=== PATIENT | female | born 1995 ===

== ENCOUNTER 2018-06-03 10:21 | Emergency (ER) | payer OTHER ==
[2018-06-03 10:53] VITALS: BP 105/68; PULSE 73; RESP 18; O2SAT 98
--- NOTE | 2018-06-03 11:07 | ED PDOC ---
HPI: Abdomen Time Seen by Provider: 06/03/18 10:56 Chief Complaint (Nursing): Abdominal Pain History Per: Patient Onset/Duration Of Symptoms: Intermittent Episodes Current Symptoms Are (Timing): Intermittent Episodes Severity: Mild Location Of Pain/Discomfort: RLQ Quality Of Discomfort: Unable To Describe Associated Symptoms: denies: Fever, Nausea, Vomiting, Diarrhea, Urinary Symptoms Exacerbating Factors: None Alleviating Factors: None Additional Complaint(s): Intermittent RLQ abd pain over past few months. Worse last night. Denies NVD. Denies urinary sxs. LMP May 11 Past Medical History Vital Signs: Last Vital Signs Temp 98.8 F 06/03/18 10:51 Pulse 73 06/03/18 10:51 Resp 18 06/03/18 10:51 BP 105/68 06/03/18 10:51 Pulse Ox 98 06/03/18 10:51 - Medical History Other PMH: Ovarian cyst - Family History Family History: States: Unknown Family Hx - Home Medications Home Medications: Ambulatory Orders Medication Instructions Recorded Naproxen [Naprosyn] 500 mg PO Q12H #20 tab 06/03/18 - Allergies Allergies/Adverse Reactions: Allergies Allergy/AdvReac Type Severity Reaction Status Date / Time No Known Allergies Allergy Verified 06/03/18 10:51 Review of Systems Constitutional: Negative for: Fever Gastrointestinal: Positive for: Abdominal Pain. Negative for: Nausea, Vomiting, Diarrhea Genitourinary Female: Negative for: Dysuria, Frequency Musculoskeletal: Negative for: Back Pain Physical Exam - Physical Exam Appears: Positive for: Non-toxic, No Acute Distress Skin: Positive for: Normal Color, Warm, DRY Gastrointestinal/Abdominal: Positive for: Bowel Sounds, Soft, Tenderness (Mild RLQ tenderness). Negative for: Guarding, Rebound Back: Negative for: L CVA Tenderness, R CVA Tenderness Extremity: Positive for: Normal ROM Neurologic/Psych: Positive for: Alert, Oriented - ECG O2 Sat by Pulse Oximetry: 98 Medical Decision Making Medical Decision Making: Discussed with Dr. Bobby, can be followed outpt with repeat US 2-3 months Disposition - Clinical Impression Clinical Impression: Ovarian cyst - Patient ED Disposition Is Patient to be Admitted: No Counseled Patient/Family Regarding: Studies Performed, Diagnosis, Need For Followup, Rx Given - Disposition [facility] Disposition: Routine/Home Disposition Time: 13:38 Condition: FAIR Prescriptions: Naproxen [Naprosyn] 500 mg PO Q12H #20 tab Instructions: Ovarian Cysts Forms: [facility] (German) Print Language: FAROESE
--- NOTE | 2018-06-03 12:55 | US ---
Date of service: 06/03/2018 PROCEDURE: HISTORY: Right sided pain, h/o cysts COMPARISON: None TECHNIQUE: FINDINGS: The uterus measures 7.4 x 3.4 x 3.9 centimeters. The endometrium measures 7 millimeters. The right ovary measures 8.1 x 5.8 x 5.6 centimeters contains a complex septated ovarian cyst measuring 7.5 x 4.3 centimeters. The left ovary measures 3.4 x 1.3 x 2.3 centimeters contains a 1.9 centimeter follicular cyst. There is no free fluid the pelvis. IMPRESSION: Large complex right ovarian cyst measuring up to 7.5 centimeters. Recommend follow-up in 2-3 menstrual cycles.
[2018-06-03 13:53] VITALS: TEMP 97.6
== END 2018-06-03 13:45 | disposition home or self-care (01) ==
LOC: H.ER 10:21
DX: N83.201 Unspecified ovarian cyst, right side (principal)

== ENCOUNTER 2018-10-03 08:48 | Inpatient (IN) | payer SELFPAY ==
[2018-10-03] MEDS ORDERED: Morphine 4 MG/ML VIAL IVP ONE (09:50)
[2018-10-03 10:26] LABS: BASO % 0.1 % (0.0-2.0); EOS % 0.1 % (0.0-4.0); HEMOGLOBIN 13.1 g/dL (12.0-16.0); LYMPH # 2.4 K/uL (1.0-4.3); LYMPH % 16.6 % (20.0-40.0); MEAN CELL VOLUME 95.3 fl (81.0-99.0); MEAN CORPUSCULAR HEMOGLOBIN 31.9 pg (27.0-31.0); MEAN CORPUSCULAR HGB CONC 33.5 g/dL (33.0-37.0); MEAN PLATELET VOLUME 8.3 fl (7.2-11.7); MONO # 0.7 K/uL (0.0-0.8); MONO % 4.7 % (0.0-10.0); NEUT # 11.3 K/uL (1.8-7.0); NEUT % 78.5 % (50.0-75.0); RBC 4.12 Mil/uL (3.80-5.20); RED CELL DISTRIBUTION WIDTH 13.4 % (11.5-14.5); WHITE BLOOD COUNT 14.4 K/uL (4.8-10.8)
[2018-10-03 10:28] LABS: SQUAMOUS EPITHIAL 4 /hpf (0-5); URINE AMORPHOUS SEDIMENT MODERATE /ul (<OCC); URINE BACTERIA OCC (<OCC); URINE BILIRUBIN NEGATIVE (NEGATIVE); URINE BLOOD SMALL (NEGATIVE); URINE CLARITY CLOUDY (Clear); URINE COLOR YELLOW (YELLOW); URINE GLUCOSE (UA) NEG (NEGATIVE); URINE LEUKOCYTE ESTERASE NEG Leu/uL (Negative); URINE PROTEIN NEGATIVE (NEGATIVE); URINE UROBILINOGEN 0.2-1.0 mg/dL (0.2-1.0)
[2018-10-03 10:30] LABS: VENOUS BLOOD GAS BASE EXCESS -0.2 mmol/L (0.0-2.0); VENOUS BLOOD GAS PCO2 44 mmHg (40-60); VENOUS BLOOD GAS PO2 31 mm/Hg (30-55); VENOUS BLOOD PH 7.37 (7.32-7.43)
[2018-10-03 10:42] VITALS: BMI 19.3
[2018-10-03 10:51] LABS: ALB/GLOB RATIO 1.2 (1.0-2.1); ALBUMIN 4.6 g/dL (3.5-5.0); ALT/SGPT 24 U/L (9-52); AST/SGOT 35 U/L (14-36); BLOOD UREA NITROGEN 12 mg/dl (7-17); CALCIUM 9.5 mg/dL (8.4-10.2); GFR NON-AFRICAN AMERICAN > 60
[2018-10-03] MEDS ORDERED: Sodium Chloride 0.9% 50 ML IV ONE (11:08)
[2018-10-03] MEDS ORDERED: Iohexol 300 100 ML IJ ONE (11:08)
--- NOTE | 2018-10-03 11:09 | ED PDOC ---
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 Patient states that she also began vomiting this morning and pain became more serve. She admits to a history of ovarian cyst requiring surgical intervention. Patient offers no other medical complaints at this time. PMD: none provided Lift Team Technician: Dr. Rodriguez Past Medical History Reviewed: Historical Data, Nursing Documentation, Vital Signs Vital Signs: Last Vital Signs Temp 97 F L 10/03/18 09:07 Pulse 67 10/03/18 09:07 Resp 18 10/03/18 09:07 BP 113/71 10/03/18 09:07 Pulse Ox 98 10/03/18 09:32 - Medical History PMH: No Chronic Diseases - Surgical History Surgical History: No Surg Hx - Family History Family History: States: Unknown Family Hx - Social History Current smoker - smoking cessation education provided: No Alcohol: None Drugs: Denies - Immunization History Hx Tetanus Toxoid Vaccination: No Hx Influenza Vaccination: No Hx Pneumococcal Vaccination: No - Home Medications Home Medications: Ambulatory Orders Medication Instructions Recorded Multivitamin [Multi-Vitamin Daily] 1 tab PO DAILY 10/03/18 - Allergies Allergies/Adverse Reactions: Allergies Allergy/AdvReac Type Severity Reaction Status Date / Time No Known Allergies Allergy Verified 06/03/18 10:51 Review of Systems ROS Statement: Except As Marked, All Systems Reviewed And Found Negative Gastrointestinal: Positive for: Vomiting, Abdominal Pain Physical Exam - Reviewed Nursing Documentation Reviewed: Yes Vital Signs Reviewed: Yes - Physical Exam Appears: Positive for: Non-toxic, In Acute Distress (mild painful ) Head Exam: Positive for: ATRAUMATIC, NORMAL INSPECTION, NORMOCEPHALIC Skin: Positive for: Normal Color, Warm, DRY Eye Exam: Positive for: Normal appearance ENT: Positive for: Normal ENT Inspection Neck: Positive for: Normal, Painless ROM Cardiovascular/Chest: Positive for: Regular Rate, Rhythm. Negative for: Murmur Respiratory: Positive for: Normal Breath Sounds. Negative for: Respiratory Distress Gastrointestinal/Abdominal: Positive for: Soft, Tenderness (right lower quadrant tenderness ) Back: Positive for: Normal Inspection. Negative for: L CVA Tenderness, R CVA Tenderness, Vertebral Tenderness Extremity: Positive for: Normal ROM. Negative for: Deformity, Swelling Neurologic/Psych: Positive for: Alert, Oriented. Negative for: Motor/Sensory Deficits - Laboratory Results Result Diagrams: 10/05/18 06:05 10/05/18 06:05 Lab Results: pO2 31 mm/Hg (30-55) 10/03/18 10:13 VBG pH 7.37 (7.32-7.43) 10/03/18 10:13 VBG pCO2 44 mmHg (40-60) 10/03/18 10:13 VBG HCO3 23.7 mmol/L 10/03/18 10:13 VBG Total CO2 26.8 mmol/L (22-28) 10/03/18 10:13 VBG O2 Sat (Calc) 58.9 % (40-65) 10/03/18 10:13 VBG Base Excess -0.2 mmol/L (0.0-2.0) L 10/03/18 10:13 Sodium 195.0 mmol/L (132-148) H* 10/03/18 10:13 Chloride 126.0 mmol/L (98-107) H 10/03/18 10:13 Glucose 106 mg/dL (65-105) H 10/03/18 10:13 Lactate 2.3 mmol/L (0.7-2.1) H 10/03/18 10:13 FiO2 21.0 % 10/03/18 10:13 Crit Value Called To Bertha vaz md 10/03/18 10:13 Crit Value Called By Anthony gresham [facility] 10/03/18 10:13 Crit Value Read Back Y 10/03/18 10:13 Blood Gas Notified Time 1035 10/03/18 10:13 Total Bilirubin 0.7 mg/dl (0.2-1.3) 10/03/18 09:45 AST 35 U/L (14-36) 10/03/18 09:45 ALT 24 U/L (9-52) 10/03/18 09:45 Alkaline Phosphatase 88 U/L (38-126) 10/03/18 09:45 Total Protein 8.5 G/DL (6.3-8.2) H 10/03/18 09:45 Albumin 4.6 g/dL (3.5-5.0) 10/03/18 09:45 Globulin 3.9 gm/dL (2.2-3.9) 10/03/18 09:45 Albumin/Globulin Ratio 1.2 (1.0-2.1) 10/03/18 09:45 Urine Color Yellow (YELLOW) 10/03/18 09:45 Urine Clarity Cloudy (Clear) 10/03/18 09:45 Urine pH 6.0 (5.0-8.0) 10/03/18 09:45 Ur Specific Oil Trough 1.018 (1.003-1.030) 10/03/18 09:45 Urine Protein Negative mg/dL (NEGATIVE) 10/03/18 09:45 Urine Glucose (UA) Neg mg/dL (NEGATIVE) 10/03/18 09:45 Urine Ketones Negative mg/dL (NEGATIVE) 10/03/18 09:45 Urine Blood Small (NEGATIVE) 10/03/18 09:45 Urine Nitrate Negative (NEGATIVE) 10/03/18 09:45 Urine Bilirubin Negative (NEGATIVE) 10/03/18 09:45 Urine Urobilinogen 0.2-1.0 mg/dL (0.2-1.0) 10/03/18 09:45 Ur Leukocyte Esterase Neg Arie/uL (Negative) 10/03/18 09:45 Urine RBC (Auto) 5 /hpf (0-3) H 10/03/18 09:45 Urine Microscopic WBC < 1 /hpf (0-5) 10/03/18 09:45 Ur Squamous Epith Cells 4 /hpf (0-5) 10/03/18 09:45 Amorphous Sediment Moderate /ul (<OCC) H 10/03/18 09:45 Urine Bacteria Occ (<OCC) H 10/03/18 09:45 - ECG O2 Sat by Pulse Oximetry: 98 (RA) Pulse Ox Interpretation: Normal Medical Decision Making Medical Decision Making: Time: 10:00 A/P: workup for ovarian cyst vs other cause of right lower quadrant pain --Morphine for pain control --Zofran, IV fluids, labs, CT abd/pelvis --Reassess patient CT Abd/Pelvis: FINDINGS: LOWER THORAX: Unremarkable. LIVER: Unremarkable. No gross lesion or ductal dilatation. GALLBLADDER AND BILE DUCTS: Gallbladder is only mildly distended with trace pericholecystic fluid noted but no radiodense cholelithiasis or prominent mural thickening related. Clinically correlate for potential cholecystitis. PANCREAS: Unremarkable. No gross lesion or ductal dilatation. SPLEEN: Unremarkable. ADRENALS: Unremarkable. No mass. KIDNEYS AND URETERS: Unremarkable. No hydronephrosis. No solid mass. VASCULATURE: Unremarkable. No aortic aneurysm. No aortic atherosclerotic calcification or mural plaque present. BOWEL: Unremarkable. No obstruction. No gross mural thickening. APPENDIX: Normal appendix. PERITONEUM: Unremarkable. No free fluid. No free air. LYMPH NODES: Unremarkable. No enlarged lymph nodes. BLADDER: Unremarkable. REPRODUCTIVE: At the right adnexal compartment but also extending into the midline lower abdomen and left lower quadrant is a large complex cystic mass measuring 11.9 x 7.0 x 10.4 cm (transverse by anteroposterior by superoinferior dimensions) with multiple septations and nodules related but no calcifications or definite fat. Trace surrounding fluid is associated laterally. The appendix is adjacent to this structure but probably separate from it. This likely corresponds to cystic changes seen at the right adnexal compartment without defined right ovary in prior transvaginal pelvic ultrasound 09/25/2018. The cystic components appeared interconnect and the overall diagnosis therefore felt to reflect hydrosalpinx. Pyosalpinx is not excluded. Clinically correlate further. Gynecological consultation advised. Small cysts are identified at the left ovary measuring up to 1.5 cm greatest dimension. There may be some amount of fluid in the endometrial cavity of the uterus otherwise unremarkable. No pelvic sidewall or retroperitoneal lymphadenopathy appreciated local mesenteric lymph nodes are shotty and infrequent. BONES: No acute fracture. OTHER FINDINGS: None. IMPRESSION: An 11.9 cm complex cystic/tubular mass is seen at the right adnexal compartment extending into the midline lower abdomen and left lower quadrant as well with trace related fluid felt to reflect hydrosalpinx and potential pyosalpinx. Gynecological consultation advised. Differential diagnosis though unlikely would be cystic ovarian neoplasm. Trace fluid is seen related to the gallbladder fossa though the gallbladder intrinsically appears unremarkable otherwise. Trace fluid is seen in the right pericolic gutter with both of these collection potentially related to the right adnexal finding. Further clinical correlation for potential cholecystitis nevertheless advised. 13:[address] hPelps. Will start antibiotics and will get an ultrasound to rule out torsion. ----- Scribe Attestation: Documented by Belen Curtis, acting as a scribe for Bertha Vaz MD. Provider Scribe Attestation: All medical record entries made by the Scribe were at my direction and personall y dictated by me. I have reviewed the chart and agree that the record accurately reflects my personal performance of the history, physical exam, medical decision making, and the department course for this patient. I have also personally directed, reviewed, and agree with the discharge instructions and disposition. Disposition - Clinical Impression Clinical Impression: Abdominal pain in female - Disposition Disposition Time: 15:00 Condition: GOOD
[2018-10-03] MEDS ORDERED: Sodium Chloride 0.9% 1,000 ML IV STA (11:24)
--- NOTE | 2018-10-03 13:13 | CT ---
Date of service: 10/03/2018 PROCEDURE: CT Abdomen and Pelvis with contrast HISTORY: RLQ pain COMPARISON: Transvaginal pelvic ultrasound 09/25/2018. TECHNIQUE: Following the intravenous administration of iodinated contrast material, a CT examination of the abdomen and pelvis was performed from the domes of the diaphragms to the symphysis pubis with reformatted datasets provided in axial, sagittal and coronal planes. Oral contrast was not administered as per referring physician request. Contrast dose: Omnipaque 300, 95 cc Radiation dose: Total exam DLP = 278.06 mGy-cm. This CT exam was performed using one or more of the following dose reduction techniques: Automated exposure control, adjustment of the mA and/or kV according to patient size, and/or use of iterative reconstruction technique. FINDINGS: LOWER THORAX: Unremarkable. LIVER: Unremarkable. No gross lesion or ductal dilatation. GALLBLADDER AND BILE DUCTS: Gallbladder is only mildly distended with trace pericholecystic fluid noted but no radiodense cholelithiasis or prominent mural thickening related. Clinically correlate for potential cholecystitis. PANCREAS: Unremarkable. No gross lesion or ductal dilatation. SPLEEN: Unremarkable. ADRENALS: Unremarkable. No mass. KIDNEYS AND URETERS: Unremarkable. No hydronephrosis. No solid mass. VASCULATURE: Unremarkable. No aortic aneurysm. No aortic atherosclerotic calcification or mural plaque present. BOWEL: Unremarkable. No obstruction. No gross mural thickening. APPENDIX: Normal appendix. PERITONEUM: Unremarkable. No free fluid. No free air. LYMPH NODES: Unremarkable. No enlarged lymph nodes. BLADDER: Unremarkable. REPRODUCTIVE: At the right adnexal compartment but also extending into the midline lower abdomen and left lower quadrant is a large complex cystic mass measuring 11.9 x 7.0 x 10.4 cm (transverse by anteroposterior by superoinferior dimensions) with multiple septations and nodules related but no calcifications or definite fat. Trace surrounding fluid is associated laterally. The appendix is adjacent to this structure but probably separate from it. This likely corresponds to cystic changes seen at the right adnexal compartment without defined right ovary in prior transvaginal pelvic ultrasound 09/25/2018. The cystic components appeared interconnect and the overall diagnosis therefore felt to reflect hydrosalpinx. Pyosalpinx is not excluded. Clinically correlate further. Gynecological consultation advised. Small cysts are identified at the left ovary measuring up to 1.5 cm greatest dimension. There may be some amount of fluid in the endometrial cavity of the uterus otherwise unremarkable. No pelvic sidewall or retroperitoneal lymphadenopathy appreciated local mesenteric lymph nodes are shotty and infrequent. BONES: No acute fracture. OTHER FINDINGS: None. IMPRESSION: An 11.9 cm complex cystic/tubular mass is seen at the right adnexal compartment extending into the midline lower abdomen and left lower quadrant as well with trace related fluid felt to reflect hydrosalpinx and potential pyosalpinx. Gynecological consultation advised. Differential diagnosis though unlikely would be cystic ovarian neoplasm. Trace fluid is seen related to the gallbladder fossa though the gallbladder intrinsically appears unremarkable otherwise. Trace fluid is seen in the right pericolic gutter with both of these collection potentially related to the right adnexal finding. Further clinical correlation for potential cholecystitis nevertheless advised.
[2018-10-03] MEDS ORDERED: Clindamycin 600mg/50ml D5W 600 MG/50 ML VIAL IVPB STA (13:20)
[2018-10-03] MEDS ORDERED: Gentamicin 250 MG in Sodium Chloride 0.9% 250 ML IVPB ONE (13:21)
--- NOTE | 2018-10-03 15:50 | US ---
Date of service: 10/03/2018 HISTORY: rule out right torsion COMPARISON: CT same-day noted additional prior transvaginal ultrasound studies from 09/25/2018 and 06/03/2018 also noted. TECHNIQUE: Ultrasound scanning with Doppler was performed. FINDINGS: UTERUS: Measures 7.2 x 3.4 x 4.8 cm. Normal in size and anteverted appearance. No fibroid or other intrauterine mass lesion seen. ENDOMETRIUM: Measures 8 mm in diameter. Unremarkable. CERVIX: Few clustered nabothian cysts are noted RIGHT OVARY: No normal appearing is seen. Instead a complex cystic mass likely envelopment the right ovary along with the blending right hydrosalpinx with debris within the right hydrosalpinx is suspect. There is free fluid around this complex fluid collection but the amount of fluid is not particularly prominent. A few prominent vessels around this complex right adnexal cystic "mass"/collection is also noted. There is Doppler flow to the right adnexa LEFT OVARY: Measures 4.1 x 2.5 x 3.9 cm. No solid mass. Normal flow. A dominant left ovarian follicular cyst seen measuring 2.0 x 1.6 x 1.9 cm. FREE FLUID: There is some free fluid in the cul-de-sac. OTHER FINDINGS: None. IMPRESSION: Persistent complex probably cystic or right adnexal mass-likely in part developing the right ovary a large part of this is believed to represent a right hydrosalpinx with some debris within the right hydrosalpinx. There is some flow to the right adnexa and no prior torsion is believed present. However prior intermittent bouts of torsion are possible particularly given the clinical history presented to me. The possibility of a large right hydrosalpinx with debris perhaps even pyo hydrosalpinx along with a occult right ovarian cyst also needs to be considered. It is not clearly separate from what is believed to be largely a right hydrosalpinx and/or right pial hydrosalpinx. CT does show some fluid around the gallbladder. And some minimal fluid around the paracolic gutter. On this ultrasound a small non of free fluid in the cul-de-sac is noted.
--- NOTE | 2018-10-03 15:55 | CP.PCM.HP ---
<Tete Sharif - Last Filed: 10/03/18 17:02> History of Present Illness - History of Present Illness History of Present Illness: Voyce: [id number] Pt is a 22 yo F with pmhx of ovarian cysts presented to ED due to progressive RLQ pain, reports the onset of pain was 4 months ago was intermit tent then yesterday pain became persistent and more severe. Associated nausea, vomiting x2 and constipation. Denies fevers or vaginal bleeding. Voiding well, last BM yest, last ate yest AM. Pt was seen in the ED on 06/17 which showed 7.5cm R adnexal cyst was following up outpt. Museum Guide: Dr. Andrade-last saw 08/21/18 Hub Inventory Specialist: LMP 09/21/18, irregular Q40-45 days, no control, Denies hx of STD's, last pap 1 yr ago reports normal PMHx: Ovarian cysts since age 15 Meds: None Allergies: NKDA Surg Hx: Ovarian cystectomy laparoscopic (9cm) 2011, Laparotomy (4cm) 2013 done in [place] FHx: Denies, No uterine, ovarian, or colon ca in the family Social Hx: Denies EtOh, tobacco, or drug use ED course: CT Ab/pelv-R adnexal complex cystic mass measuring 11.9 x 7.0 x 10.4 cm consider hydrosalpinx and potential pyosalpinx. TVU/S-R cystic complex adnexal mass, no ovarian torsion, fluid in the cul de sac. Pain control morphine, Zofran nausea, UPT- negative, CBC, CMP, GC/CHL, U/A, Shock panel, blood cx, urine cx. Started Gentamicin 250mg and Clindamycin 600mg. Present on Admission - Present on Admission Any Indicators Present on Admission: No History of DVT/PE: No History of Uncontrolled Diabetes: No Urinary Catheter: No Decubitus Ulcer Present: No Review of Systems - Gastrointestinal Gastrointestinal: Abdominal Pain (Right lower), Nausea, Vomiting (x2) - Reproductive: Female Reproductive:Female: Cycle >35 Days Past Patient History - Past Social History Smoking Status: Never Smoked Alcohol: None Drugs: Denies - GASTROINTESTINAL Hx Constipation: Yes Hx Nausea: Yes - PSYCHIATRIC Hx Substance Use: No Meds Allergies/Adverse Reactions: Allergies Allergy/AdvReac Type Severity Reaction Status Date / Time No Known Allergies Allergy Verified 06/03/18 10:51 Physical Exam - Constitutional Appears: Non-toxic, No Acute Distress - Head Exam Head Exam: ATRAUMATIC, NORMAL INSPECTION, NORMOCEPHALIC - Eye Exam Eye Exam: EOMI, Normal appearance - ENT Exam ENT Exam: Mucous Membranes Moist - Respiratory Exam Respiratory Exam: Clear to Auscultation Bilateral. absent: Rales, Rhonchi, Wheezes - Cardiovascular Exam Cardiovascular Exam: RRR, +S1, +S2 - GI/Abdominal Exam GI & Abdominal Exam: Guarding, Hypoactive Bowel Sounds, Soft, Tenderness (RLQ and supra pubic tenderness, mild LLQ tenderness). absent: Distended, Rigid Additional comments: Transverse Laparotomy scar supra pubic region, Laparoscopy scars - Extremities Exam Extremities exam: Positive for: normal inspection - Skin Additional comments: Facial Acne Results - Vital Signs Recent Vital Signs: Last Vital Signs Temp 97 F L 10/03/18 09:07 Pulse 78 10/03/18 12:55 Resp 18 10/03/18 12:55 BP 115/69 10/03/18 12:55 Pulse Ox 98 10/03/18 13:44 - Labs Result Diagrams: 10/03/18 09:45 10/03/18 09:45 Labs: Laboratory Results - last 24 hr 10/03/18 10/03/18 10/03/18 09:45 09:45 09:45 WBC 14.4 H RBC 4.12 Hgb 13.1 Hct 39.2 MCV 95.3 MCH 31.9 H MCHC 33.5 RDW 13.4 Plt Count 274 MPV 8.3 Neut % (Auto) 78.5 H Lymph % (Auto) 16.6 L [place] % (Auto) 4.7 Eos % (Auto) 0.1 Baso % (Auto) 0.1 Neut # (Auto) 11.3 H Lymph # (Auto) 2.4 [place] # (Auto) 0.7 Eos # (Auto) 0.0 Baso # (Auto) 0.0 pO2 VBG pH VBG pCO2 VBG HCO3 VBG Total CO2 VBG O2 Sat (Calc) VBG Base Excess Glucose Lactate FiO2 Crit Value Called To Crit Value Called By Crit Value Read Back Blood Gas Notified Time Sodium 142 Potassium 3.5 L Chloride 101 Carbon Dioxide 25 Anion Gap 20 BUN 12 Creatinine 0.5 L Est GFR ( Amer) > 60 Est GFR (Non-Af Amer) > 60 Random Glucose 119 H Calcium 9.5 Total Bilirubin 0.7 AST 35 ALT 24 Alkaline Phosphatase 88 Total Protein 8.5 H Albumin 4.6 Globulin 3.9 Albumin/Globulin Ratio 1.2 Urine Color Yellow Urine Clarity Cloudy Urine pH 6.0 Ur Specific [place] 1.018 Urine Protein Negative Urine Glucose (UA) Neg Urine Ketones Negative Urine Blood Small Urine Nitrate Negative Urine Bilirubin Negative Urine Urobilinogen 0.2-1.0 Ur Leukocyte Esterase Neg Urine RBC (Auto) 5 H Urine Microscopic WBC < 1 Ur Squamous Epith Cells 4 Amorphous Sediment Moderate H Urine Bacteria Occ H Blood Type Blood Type Confirm Antibody Screen BBK History Checked 10/03/18 10/03/18 10/03/18 09:45 10:13 11:04 WBC RBC Hgb Hct MCV MCH MCHC RDW Plt Count MPV Neut % (Auto) Lymph % (Auto) [place] % (Auto) Eos % (Auto) Baso % (Auto) Neut # (Auto) Lymph # (Auto) [place] # (Auto) Eos # (Auto) Baso # (Auto) pO2 31 VBG pH 7.37 VBG pCO2 44 VBG HCO3 23.7 VBG Total CO2 26.8 VBG O2 Sat (Calc) 58.9 VBG Base Excess -0.2 L Glucose 106 H Lactate 2.3 H FiO2 21.0 Crit Value Called To Bertha mayfield md Crit Value Called By Anthony gresham frame aligner Crit Value Read Back Y Blood Gas Notified Time 1035 Sodium 195.0 H* Potassium Chloride 126.0 H Carbon Dioxide Anion Gap BUN Creatinine Est GFR ( Amer) Est GFR (Non-Af Amer) Random Glucose Calcium Total Bilirubin AST ALT Alkaline Phosphatase Total Protein Albumin Globulin Albumin/Globulin Ratio Urine Color Urine Clarity Urine pH Ur Specific [place] Urine Protein Urine Glucose (UA) Urine Ketones Urine Blood Urine Nitrate Urine Bilirubin Urine Urobilinogen Ur Leukocyte Esterase Urine RBC (Auto) Urine Microscopic WBC Ur Squamous Epith Cells Amorphous Sediment Urine Bacteria Blood Type O POSITIVE Blood Type Confirm O POSITIVE Antibody Screen Negative BBK History Checked No verified bt Assessment & Plan - Assessment and Plan (Free Text) Assessment: Pt is a 22 yo F with pmhx of ovarian cysts presented to ED due to progressive RLQ pain admitted due to hydrosalpinx Ovarian cyst CT Ab/pelv-R adnexal complex cystic mass measuring 11.9 x 7.0 x 10.4 cm consider hydrosalpinx and potential pyosalpinx. TVU/S-R cystic complex adnexal mass, no ovarian torsion, fluid in the cul de sac. Pain control morphine, Zofran nausea UPT- negative CBC, CMP, GC/CHL, U/A, Shock panel -f/u Blood cx, urine cx -f/u Started Gentamicin 250mg and Clindamycin 600mg Day 1 Keep NPO , IVF's Consider Surgical intervention in AM Case reviewed and discussed with Dr. Lenin Sharif PGY1 <Bertha Phelps - Last Filed: 10/04/18 18:37> Results - Vital Signs Recent Vital Signs: Last Vital Signs Temp 98.9 F 10/04/18 16:05 Pulse 84 10/04/18 16:05 Resp 16 10/04/18 16:05 BP 100/69 10/04/18 14:00 Pulse Ox 98 10/04/18 16:05 - Labs Result Diagrams: 10/04/18 05:15 10/04/18 05:15 Labs: Laboratory Results - last 24 hr 10/04/18 10/04/18 10/04/18 05:15 05:15 05:15 WBC 9.2 RBC 3.66 L Hgb 12.0 Hct 34.1 MCV 92.9 D MCH 32.6 H MCHC 35.1 RDW 13.0 Plt Count 265 MPV 8.3 Neut % (Auto) 73.2 Lymph % (Auto) 20.3 [place] % (Auto) 6.4 Eos % (Auto) 0.1 Baso % (Auto) 0.0 Neut # (Auto) 6.7 Lymph # (Auto) 1.9 [place] # (Auto) 0.6 Eos # (Auto) 0.0 Baso # (Auto) 0.0 PT 13.1 INR 1.2 APTT 33.0 Sodium 139 Potassium 3.9 Chloride 105 Carbon Dioxide 24 Anion Gap 14 BUN 7 Creatinine 0.5 L Est GFR ( Amer) > 60 Est GFR (Non-Af Amer) > 60 Random Glucose 135 H Calcium 9.0 Assessment & Plan - Assessment and Plan (Free Text) Assessment: OB Hospitalist Addendum: Pt seen and examined by me. Agree w/ above. 22 yo G0 w/ severe right lower quadrant pain w/ large right adnexal mass on CT and u/s. Pt scheduled for L/s, possible laparotomy, possible right salpingectomy, possible right oophorectomy for tomorrow am. Informed consents obtained w/ dowel inserting machine operator for procedure and possible transfusion. All questions answered. (ES)
[2018-10-03] MEDS ORDERED: Sodium Chloride 0.9% 1,000 ML IV SCH (18:00)
[2018-10-03] MEDS: Potassium Ch 20mEq in D5-1/2NS 1,000 ML IV SCH (18:26)
[2018-10-04] MEDS: Potassium Ch 20mEq in D5-1/2NS 1,000 ML IV SCH (02:13)
[2018-10-04 06:33] LABS: EOS % 0.1 % (0.0-4.0); LYMPH # 1.9 K/uL (1.0-4.3); LYMPH % 20.3 % (20.0-40.0); MEAN CELL VOLUME 92.9 fl (81.0-99.0); MEAN CORPUSCULAR HEMOGLOBIN 32.6 pg (27.0-31.0); MEAN CORPUSCULAR HGB CONC 35.1 g/dL (33.0-37.0); MEAN PLATELET VOLUME 8.3 fl (7.2-11.7); MONO # 0.6 K/uL (0.0-0.8); MONO % 6.4 % (0.0-10.0); NEUT # 6.7 K/uL (1.8-7.0); NEUT % 73.2 % (50.0-75.0); NRBC % 0.1 % (0.0-0.0); RBC 3.66 Mil/uL (3.80-5.20); WHITE BLOOD COUNT 9.2 K/uL (4.8-10.8)
[2018-10-04 06:38] LABS: INR 1.2; PROTHROMBIN TIME 13.1 Seconds (9.8-13.1)
[2018-10-04 06:44] LABS: BLOOD UREA NITROGEN 7 mg/dl (7-17); GFR NON-AFRICAN AMERICAN > 60
--- NOTE | 2018-10-04 07:11 | CP.PCM.PN ---
<ChanteTete - Last Filed: 10/04/18 07:22> Subjective - Date & Time of Evaluation Date of Evaluation: 10/04/18 Time of Evaluation: 07:00 - Subjective Subjective: Pt is a 22 yo F with pmhx of ovarian cysts presented to ED with RLQ pain admitted for hydrosalpinx. Overnight had tmax of 100.0F. Continues to endorse RLQ pain severe 10/10. Reports dysuria and constipation. Denies nausea, vomiting, chest pain, SOB, or diarrhea. Accucheck 135. Pt to go to the OR today at 8am. Objective - Vital Signs/Intake and Output Vital Signs (last 24 hours): Temp Pulse Resp BP Pulse Ox 99.7 F H 72 20 122/73 100 10/04/18 01:00 10/04/18 01:00 10/04/18 01:00 10/04/18 01:00 10/04/18 01:00 Intake and Output: 10/04/18 10/04/18 06:59 18:59 Intake Total 1500 Balance 1500 - Medications Medications: Current Medications Potassium Chloride/Dextrose/Sod Cl (Potassium Chl 20 Meq In D5-1/2ns) 1,000 mls @ 125 mls/hr IV .Q8H [facility] Stop: 10/04/18 10:14 Last Admin: 10/04/18 02:13 Dose: 125 mls/hr Ketorolac Tromethamine (Toradol) 30 mg IVP Q6 PRN PRN Reason: Pain, Mild (1-3) Last Admin: 10/04/18 01:13 Dose: 30 mg - Labs Labs: 10/04/18 05:15 10/04/18 05:15 PT 13.1 Seconds (9.8-13.1) 10/04/18 05:15 INR 1.2 10/04/18 05:15 APTT 33.0 Seconds (25.6-37.1) 10/04/18 05:15 - Constitutional Appears: Non-toxic, No Acute Distress - Head Exam Head Exam: ATRAUMATIC, NORMAL INSPECTION, NORMOCEPHALIC - Eye Exam Eye Exam: EOMI - ENT Exam ENT Exam: Mucous Membranes Moist - Respiratory Exam Respiratory Exam: Clear to Ausculation Bilateral. absent: Rales, Rhonchi, Wheezes - Cardiovascular Exam Cardiovascular Exam: +S1, +S2, Murmur (appreciated on ascultation) - GI/Abdominal Exam GI & Abdominal Exam: Guarding, Soft, Tenderness (RLQ and supra pubic tenderness, mild LLQ tenderness). absent: Distended, Rebound Additional comments: No bowel sounds appreciated, non tympanic, Transverse Laparotomy scar supra pubic region, Laparoscopy scars - Extremities Exam Extremities Exam: Normal Inspection - Skin Additional comments: Facial Acne Assessment and Plan - Assessment and Plan (Free Text) Assessment: Pt is a 22 yo F with pmhx of ovarian cysts presented to ED with RLQ pain a dmitted for hydrosalpinx. Ovarian cyst CT Ab/pelv-R adnexal complex cystic mass measuring 11.9 x 7.0 x 10.4 cm consider hydrosalpinx and potential pyosalpinx. TVU/S-R cystic complex R adnexal mass, no ovarian torsion, fluid in the cul de sac. Pain control morphine, Zofran nausea UPT- negative , H & H stable, coags WNL CBC, CMP, GC/CHL, U/A, Shock panel Blood cx, urine cx -f/u Gentamicin 250mg and Clindamycin 600mg (x1 dose in ED) NPO diet D5 1/2 NS + 20K Surgical scheduled for 8 AM this morning Case reviewed and discussed with Dr. Lenin Sharif PGY1 <Bertha Phelps - Last Filed: 10/04/18 18:28> Objective - Vital Signs/Intake and Output Vital Signs (last 24 hours): Temp Pulse Resp BP Pulse Ox 98.9 F 84 16 100/69 98 10/04/18 16:05 10/04/18 16:05 10/04/18 16:05 10/04/18 14:00 10/04/18 16:05 Intake and Output: 10/04/18 10/04/18 06:59 18:59 Intake Total 1500 3120 Output Total 2150 Balance 1500 970 - Medications Medications: Current Medications Hydromorphone HCl (Dilaudid) 0.5 mg IVP Q10M PRN PRN Reason: Pain, moderate (4-7) Hydromorphone HCl (Dilaudid 0.2 Mg/Ml Investigator Utility Bill Complaints) 0 mg IV PRN PRN; Protocol PRN Reason: Pain, moderate (4-7) Last Admin: 10/04/18 11:45 Dose: 6 mg Sodium Chloride (Sodium Chloride 0.9%) 1,000 mls @ 125 mls/hr IV .Q8H [facility] Lactated Ringer's (Lactated Ringer's) 1,000 mls @ 125 mls/hr IV .Q8H [facility] Last Admin: 10/04/18 17:59 Dose: 125 mls/hr Ibuprofen (Motrin Tab) 600 mg PO Q6 PRN PRN Reason: Pain, Mild (1-3) Naloxone HCl (Narcan) 0.1 mg IVP Q2M PRN PRN Reason: Opiate reversal Oxycodone/Acetaminophen (Percocet 5/325 Mg Tab) 1 tab PO Q4 PRN PRN Reason: Pain, moderate (4-7) Stop: 10/07/18 09:34 - Labs Labs: 10/04/18 05:15 10/04/18 05:15 PT 13.1 Seconds (9.8-13.1) 10/04/18 05:15 INR 1.2 10/04/18 05:15 APTT 33.0 Seconds (25.6-37.1) 10/04/18 05:15 Assessment and Plan - Assessment and Plan (Free Text) Assessment: OB Hospitalist Addendum: Pt seen by me this am prior to her surgery. 22 yo G0 w/ severe RLQ pain w/ large right adnexal mass scheduled for surgery at 8 am. (ES)
[2018-10-04] MEDS ORDERED: Propofol 10 mg/ml Inj (20 ML) ONE (07:40)
[2018-10-04] MEDS ORDERED: Rocuronium 10 mg/ml (5 ml) ONE (07:41)
[2018-10-04] MEDS ORDERED: Succinylcholine Chloride 20 mg/ml Syr (5 ml) IV ONE (07:41)
[2018-10-04] MEDS ORDERED: Bupivacaine HCl 0.5% PF (30 ml) Inj ONE (07:46)
[2018-10-04] MEDS ORDERED: Lactated Ringer's 1,000 ML IV ONE ×2 (07:50→07:55)
[2018-10-04] MEDS ORDERED: Midazolam 2 MG/2 ML VIAL ONE (07:51)
[2018-10-04] MEDS ORDERED: Sodium Chloride 0.9% 1,000 ML IV ONE (07:55)
[2018-10-04] MEDS ORDERED: Dexamethasone 4 mg/1 ml ONE (08:27)
[2018-10-04] MEDS ORDERED: Neostigmine 1:1000 (1 mg/ml) Inj ONE (09:03)
[2018-10-04] MEDS ORDERED: Bupivacaine 0.5% Inj(30mL) IJ ONE (09:22)
[2018-10-04] MEDS ORDERED: Oxycodone/Acetaminophen 5/325 mg Tab PO PRN (09:33)
[2018-10-04] MEDS ORDERED: Sodium Chloride 0.9% 1,000 ML IV SCH (09:45)
[2018-10-04] MEDS ORDERED: HYDROmorphone 0.5 mg/0.5 ml ISec IVP PRN (09:52)
[2018-10-04] MEDS ORDERED: Naloxone 0.4 mg/ml Inj (Adult) IVP PRN (10:33)
[2018-10-04] MEDS: Lactated Ringer's 1,000 ML IV SCH (17:59)
--- NOTE | 2018-10-04 20:25 | OP ---
PROCEDURE DATE: 10/04/2018 PREOPERATIVE DIAGNOSIS: This is a 22-year-old G0 with a large right adnexal mass with severe right lower quadrant pain. POSTOPERATIVE DIAGNOSIS: This is a 22-year-old G0 with a large right adnexal mass with severe right lower quadrant pain. PROCEDURE: An open right salpingo-oophorectomy and scar excision. SURGEON: Nacho Phelps MD WAREHOUSE RECORD CLERK: There was no qualified resident to be retail store assistant and so Dr. Drew Bobby was the retail store assistant. He helped create exposure. He also helped maintain hemostasis, operated throughout the case on the side of the patient that was across from him. He delivered the large necrotic right adnexal mass through the incision and was instrumental in removing it from the pelvis. This case could not have been done without his assistance. The second home care assistant was Dr. Shelli Mack, the OB fellow. TYPE OF ANESTHESIA: General endotracheal tube anesthesia. ANESTHESIA ADMINISTERED BY: Dr. Gama Leon. FINDINGS: A large (about 12 cm in diameter) right adnexal necrotic mass. Multiple tiny fibroids seen on the uterus and a normal-appearing left tube and ovary. IV FLUID INTAKE: 2 liters of fluid. ESTIMATED BLOOD LOSS: 200 mL. URINE OUTPUT: 400 mL of clear urine. COMPLICATIONS: None. DESCRIPTION OF PROCEDURE: The risks, benefits, indications and alternatives of the procedure were reviewed with the patient and informed consent was obtained with a Citizen Of [place]-speaking back sewer. The patient was taken to the operating room with IV running. The patient was placed in the supine position and given general anesthesia. Jeffery catheter was placed in the bladder. She was prepped and draped in the usual sterile fashion. Initially, there was a prior scar that was excised. The scar was cut out with a scalpel and then it was held up with an Allis clamp as the Bovie was applied to remove it. The incision was then extended laterally with the scalpel. This incision was carried through to the underlying layer of fascia with the Bovie. The fascia was then incised bilaterally and the incision was extended laterally with the Bovie over a Shelley. The inferior aspect of the fascial incision was then grasped with Ester clamps, elevated, and the underlying rectus muscles were dissected off bluntly and with the Bovie. Attention was then turned to the superior aspect of this incision which in a similar fashion was grasped, tented up with Ester clamps, and the rectus muscles dissected off bluntly with the Bovie. The muscles of the anterior abdominal wall were in the midline by sharp and blunt dissection. The peritoneum was grasped with two Shelley's, elevated and entered sharply with the scalpel. The peritoneal incision was then extended superiorly and inferiorly. The pelvis was examined with the findings noted above. The large right adnexal necrotic mass was gently brought through the incision. Two Kt clamps were placed across the utero- ovarian ligament, the tube and the infundibulopelvic ligament of the right adnexa. The pelvic mass was then removed with Massey scissors. The bottom clamp on the cut pedicle was removed as a free tie ligature of 0-Vicryl was placed. The top clamp was replaced by a transfixion suture ligature of 0-Vicryl that was tied securely around both sides of the pedicle. Hemostasis was visualized. An O'Dax-O'Douglas retractor was then placed into the incision and the bowel was packed away with moist laparotomy sponges. The abdomen was well irrigated. Again, hemostasis of the pedicle was noted. All laparotomy sponges and instruments were removed from the abdomen. The peritoneum was closed with absorbable suture. The fascia was reapproximated with 0-Vicryl in a running fashion. The subcutaneous fat was well irrigated. The Bovie was applied to small bleeders. The space of the subcutaneous fat was closed with a running stitch of 2-0 plain gut. The skin was closed with darwin. The patient tolerated the procedure well. Sponge, lap, and needle counts were correct. The patient received 1 g of Ancef prior to the procedure. The patient was taken to the recovery room in stable condition. Nacho Phelps MD MTDShaylee
[2018-10-05] MEDS: Lactated Ringer's 1,000 ML IV SCH (01:23)
[2018-10-05 06:14] VITALS: RESP 20
[2018-10-05 06:42] LABS: HEMOGLOBIN 10.3 g/dL (12.0-16.0); MEAN CELL VOLUME 93.9 fl (81.0-99.0); MEAN CORPUSCULAR HEMOGLOBIN 33.1 pg (27.0-31.0); MEAN CORPUSCULAR HGB CONC 35.3 g/dL (33.0-37.0); RBC 3.11 Mil/uL (3.80-5.20); WHITE BLOOD COUNT 10.5 K/uL (4.8-10.8)
[2018-10-05 06:44] LABS: BLOOD UREA NITROGEN 8 mg/dl (7-17); CALCIUM 8.9 mg/dL (8.4-10.2); GFR NON-AFRICAN AMERICAN > 60
--- NOTE | 2018-10-05 06:59 | CP.PCM.PN ---
<Tete Sharif - Last Filed: 10/05/18 07:35> Subjective - Date & Time of Evaluation Date of Evaluation: 10/05/18 Time of Evaluation: 07:00 - Subjective Subjective: Pt seen and examinied at bedside. No overnight events, afebrile, VS stable. Pain controlled with pain medicine 3/10 in severity. Tolerating liquid diet without nausea or vomiting has not tried advancing to regular diet yet. No flatus or BM, has not ambulated. Denies fever, chills, headache, blurry, chest pain, SOB, cough, diarrhea, constipation, or dysuria. Objective - Vital Signs/Intake and Output Vital Signs (last 24 hours): Temp Pulse Resp BP Pulse Ox 98.8 F 71 20 100/61 100 10/05/18 05:00 10/05/18 05:00 10/05/18 05:00 10/05/18 05:00 10/05/18 05:00 Intake and Output: 10/04/18 10/05/18 18:59 06:59 Intake Total 3120 2000 Output Total 2150 2200 Balance 970 -200 - Medications Medications: Current Medications Hydromorphone HCl (Dilaudid) 0.5 mg IVP Q10M PRN PRN Reason: Pain, moderate (4-7) Hydromorphone HCl (Dilaudid 0.2 Mg/Ml Processor Solid Propellant) 0 mg IV PRN PRN; Protocol PRN Reason: Pain, moderate (4-7) Last Admin: 10/04/18 11:45 Dose: 6 mg Sodium Chloride (Sodium Chloride 0.9%) 1,000 mls @ 125 mls/hr IV .Q8H [facility] Lactated Ringer's (Lactated Ringer's) 1,000 mls @ 125 mls/hr IV .Q8H [facility] Last Admin: 10/05/18 01:23 Dose: 125 mls/hr Ibuprofen (Motrin Tab) 600 mg PO Q6 PRN PRN Reason: Pain, Mild (1-3) Naloxone HCl (Narcan) 0.1 mg IVP Q2M PRN PRN Reason: Opiate reversal Oxycodone/Acetaminophen (Percocet 5/325 Mg Tab) 1 tab PO Q4 PRN PRN Reason: Pain, moderate (4-7) Stop: 10/07/18 09:34 - Labs Labs: 10/05/18 06:05 10/05/18 06:05 PT 13.1 Seconds (9.8-13.1) 10/04/18 05:15 INR 1.2 10/04/18 05:15 APTT 33.0 Seconds (25.6-37.1) 10/04/18 05:15 - Constitutional Appears: Non-toxic, No Acute Distress - Head Exam Head Exam: ATRAUMATIC, NORMAL INSPECTION, NORMOCEPHALIC Additional comments: Wearing 2 L nasal cannula - Eye Exam Eye Exam: EOMI, Normal appearance - ENT Exam ENT Exam: Mucous Membranes Moist - Respiratory Exam Respiratory Exam: Clear to Ausculation Bilateral. absent: Rales, Rhonchi, Wheezes - Cardiovascular Exam Cardiovascular Exam: +S1, +S2, Murmur - GI/Abdominal Exam GI & Abdominal Exam: Soft, Hypoactive Bowel Sounds (Minimal ). absent: Distended, Tenderness, Rebound Additional comments: Dressing covering laparotomy scar, minor serosanguinous drainage, old laparoscopy scars - Extremities Exam Extremities Exam: Normal Inspection - Neurological Exam Neurological Exam: Alert, Awake, Oriented x3 - Skin Additional comments: Facial Acne Assessment and Plan - Assessment and Plan (Free Text) Assessment: Pt is a 22 yo F with pmhx of ovarian cysts presented to ED with RLQ pain admitted for hydrosalpinx, s/p Laparotomy R salpingo oophorectomy, doing well POD 1. R salpingo oophorectomy due to complex ovarian cyst Encouraged ambulation, D/c Jeffery, Advancing diet as tolerated H&H 10.3/29.2 and VS- stable Pain control Ibuprofen scheduled, Percocet and Dilaudid PRN CBC and CMP unremarkable LR's @ 125 IVF Urine cx - no growth F/u GC/CHL Blood cx- no growth @ [id number] Ordered Incentive spirometry Consider D/c today with outpt follow up at the [facility] Case reviewed and discussed with Dr. Lenin Sharif PGY1 <Bertha Phelps - Last Filed: 10/05/18 12:52> Objective - Vital Signs/Intake and Output Vital Signs (last 24 hours): Temp Pulse Resp BP Pulse Ox 98.9 F 77 20 104/62 100 10/05/18 12:12 10/05/18 12:12 10/05/18 12:12 10/05/18 12:12 10/05/18 12:12 Intake and Output: 10/05/18 10/05/18 06:59 18:59 Intake Total 1999 Output Total 2199 Balance -200 - Medications Medications: Current Medications Sodium Chloride (Sodium Chloride 0.9%) 1,000 mls @ 125 mls/hr IV .Q8H [facility] Lactated Ringer's (Lactated Ringer's) 1,000 mls @ 125 mls/hr IV .Q8H [facility] Last Admin: 10/05/18 01:23 Dose: 125 mls/hr Ibuprofen (Motrin Tab) 600 mg PO Q6 [facility]I Naloxone HCl (Narcan) 0.1 mg IVP Q2M PRN PRN Reason: Opiate reversal Oxycodone/Acetaminophen (Percocet 5/325 Mg Tab) 1 tab PO Q4 PRN PRN Reason: Pain, moderate (4-7) Stop: 10/07/18 09:34 - Labs Labs: 10/05/18 06:05 10/05/18 06:05 PT 13.1 Seconds (9.8-13.1) 10/04/18 05:15 INR 1.2 10/04/18 05:15 APTT 33.0 Seconds (25.6-37.1) 10/04/18 05:15 Assessment and Plan - Assessment and Plan (Free Text) Assessment: OB Hospitalist Addendum: Pt seen and examined by me. Agree w/ above. 22 yo G0 POD 1 s/p open RSO for a large necrotic mass. Pt reports feeling much donaldo r. Explained the procedure w/a electronic equipment trades worker. Rec that she f/u for gynecologic care outpatient and explained the importance of taking OCPs to prevent cyst formation. Pt is tolerating full liquids, ambulating w/o difficulty, and voided after Jeffery removed. Pt may go home after she has passed gas. Pt to f/u in the [facility] on , 10/09/2018 w/ Dr. Shelli Mack, the OB fellow. Pt to be given rx's motrin, percocet, and tammi. (ES)
[2018-10-05 12:14] VITALS: TEMP 98.9
[2018-10-05 15:52] VITALS: BP 106/57; PULSE 75
--- NOTE | 2018-10-05 16:58 | CP.PCM.DIS ---
Provider - Provider Date of Admission: 10/03/18 15:23 Attending physician: Bertha Phelps MD Consults: 10/03/18 13:23 Gynocology [ACCOUNTANT CONTROLLER Consult] Stat Comment: Consulting Provider: Bertha Phelps Consulting Physician: Bertha Phelps Reason for Consult: hydro vs pyo salpinx Time Spent in preparation of Discharge (in minutes): 45 Diagnosis - Discharge Diagnosis (1) Adnexal mass Status: Acute Hospital Course - Lab Results Lab Results: Micro Results 10/03/18 14:32 Blood-Venous Blood Culture - Preliminary NO GROWTH AFTER 48 HOURS 10/03/18 14:00 Blood-Venous Blood Culture - Preliminary NO GROWTH AFTER 48 HOURS 10/03/18 14:10 Urine Random Urine Culture - Final No Growth (<1,000 CFU/ML) Most Recent Lab Values WBC 10.5 K/uL (4.8-10.8) 10/05/18 06:05 RBC 3.11 Mil/uL (3.80-5.20) L 10/05/18 06:05 Hgb 10.3 g/dL (12.0-16.0) L 10/05/18 06:05 Hct 29.2 % (34.0-47.0) L 10/05/18 06:05 MCV 93.9 fl (81.0-99.0) 10/05/18 06:05 MCH 33.1 pg (27.0-31.0) H 10/05/18 06:05 MCHC 35.3 g/dL (33.0-37.0) 10/05/18 06:05 RDW 13.0 % (11.5-14.5) 10/05/18 06:05 Plt Count 205 K/uL (130-400) 10/05/18 06:05 MPV 8.3 fl (7.2-11.7) 10/04/18 05:15 Neut % (Auto) 73.2 % (50.0-75.0) 10/04/18 05:15 Lymph % (Auto) 20.3 % (20.0-40.0) 10/04/18 05:15 Rains % (Auto) 6.4 % (0.0-10.0) 10/04/18 05:15 Eos % (Auto) 0.1 % (0.0-4.0) 10/04/18 05:15 Baso % (Auto) 0.0 % (0.0-2.0) 10/04/18 05:15 Neut # (Auto) 6.7 K/uL (1.8-7.0) 10/04/18 05:15 Lymph # (Auto) 1.9 K/uL (1.0-4.3) 10/04/18 05:15 Rains # (Auto) 0.6 K/uL (0.0-0.8) 10/04/18 05:15 Eos # (Auto) 0.0 K/uL (0.0-0.7) 10/04/18 05:15 Baso # (Auto) 0.0 K/uL (0.0-0.2) 10/04/18 05:15 PT 13.1 Seconds (9.8-13.1) 10/04/18 05:15 INR 1.2 10/04/18 05:15 APTT 33.0 Seconds (25.6-37.1) 10/04/18 05:15 pO2 31 mm/Hg (30-55) 10/03/18 10:13 VBG pH 7.37 (7.32-7.43) 10/03/18 10:13 VBG pCO2 44 mmHg (40-60) 10/03/18 10:13 VBG HCO3 23.7 mmol/L 10/03/18 10:13 VBG Total CO2 26.8 mmol/L (22-28) 10/03/18 10:13 VBG O2 Sat (Calc) 58.9 % (40-65) 10/03/18 10:13 VBG Base Excess -0.2 mmol/L (0.0-2.0) L 10/03/18 10:13 Sodium 195.0 mmol/L (132-148) H* 10/03/18 10:13 Chloride 126.0 mmol/L (98-107) H 10/03/18 10:13 Glucose 106 mg/dL (65-105) H 10/03/18 10:13 Lactate 2.3 mmol/L (0.7-2.1) H 10/03/18 10:13 FiO2 21.0 % 10/03/18 10:13 Crit Value Called To Bertha mayfield md 10/03/18 10:13 Crit Value Called By Anthony gresham die maker bench stamping 10/03/18 10:13 Crit Value Read Back Y 10/03/18 10:13 Blood Gas Notified Time 1035 10/03/18 10:13 Sodium 140 mmol/l (132-148) 10/05/18 06:05 Potassium 3.6 MMOL/L (3.6-5.0) 10/05/18 06:05 Chloride 104 mmol/L (98-107) 10/05/18 06:05 Carbon Dioxide 28 mmol/L (22-30) 10/05/18 06:05 Anion Gap 12 (10-20) 10/05/18 06:05 BUN 8 mg/dl (7-17) 10/05/18 06:05 Creatinine 0.5 mg/dl (0.7-1.2) L 10/05/18 06:05 Est GFR ( Amer) > 60 10/05/18 06:05 Est GFR (Non-Af Amer) > 60 10/05/18 06:05 Random Glucose 84 mg/dL (65-105) 10/05/18 06:05 Calcium 8.9 mg/dL (8.4-10.2) 10/05/18 06:05 Total Bilirubin 0.7 mg/dl (0.2-1.3) 10/03/18 09:45 AST 35 U/L (14-36) 10/03/18 09:45 ALT 24 U/L (9-52) 10/03/18 09:45 Alkaline Phosphatase 88 U/L (38-126) 10/03/18 09:45 Total Protein 8.5 G/DL (6.3-8.2) H 10/03/18 09:45 Albumin 4.6 g/dL (3.5-5.0) 10/03/18 09:45 Globulin 3.9 gm/dL (2.2-3.9) 10/03/18 09:45 Albumin/Globulin Ratio 1.2 (1.0-2.1) 10/03/18 09:45 Urine Color Yellow (YELLOW) 10/03/18 09:45 Urine Clarity Cloudy (Clear) 10/03/18 09:45 Urine pH 6.0 (5.0-8.0) 10/03/18 09:45 Ur Specific [place] 1.018 (1.003-1.030) 10/03/18 09:45 Urine Protein Negative mg/dL (NEGATIVE) 10/03/18 09:45 Urine Glucose (UA) Neg mg/dL (NEGATIVE) 10/03/18 09:45 Urine Ketones Negative mg/dL (NEGATIVE) 10/03/18 09:45 Urine Blood Small (NEGATIVE) 10/03/18 09:45 Urine Nitrate Negative (NEGATIVE) 10/03/18 09:45 Urine Bilirubin Negative (NEGATIVE) 10/03/18 09:45 Urine Urobilinogen 0.2-1.0 mg/dL (0.2-1.0) 10/03/18 09:45 Ur Leukocyte Esterase Neg [place]rie/uL (Negative) 10/03/18 09:45 Urine RBC (Auto) 5 /hpf (0-3) H 10/03/18 09:45 Urine Microscopic WBC < 1 /hpf (0-5) 10/03/18 09:45 Ur Squamous Epith Cells 4 /hpf (0-5) 10/03/18 09:45 Amorphous Sediment Moderate /ul (<OCC) H 10/03/18 09:45 Urine Bacteria Occ (<OCC) H 10/03/18 09:45 C.trachomatis RNA (TMA) Not detected (Not Detected) 10/03/18 14:10 N.gonorrhoeae RNA (TMA) Not detected (Not Detected) 10/03/18 14:10 Blood Type O POSITIVE 10/03/18 09:45 Blood Type Confirm O POSITIVE 10/03/18 11:04 Antibody Screen Negative 10/03/18 09:45 BBK History Checked No verified bt 10/03/18 09:45 - Hospital Course Hospital Course: Ayse is a 22 year old nulliparous female who initially presented to the ER complaining of severe RLQ pain and was found to have a large, complicated adnexal mass. On chart review this mass had been present and apparently growing since May 2018. She had seen Dr. Andrade at the [facility] and they were considering surgical removal but had not decided on a treatment course. A transvaginal US did not show any evidence of acute adnexal torsion. Given her level of pain, size of the mass and acute presentation the decision was made to proceed with surgery the morning after admission. The mass was removed without difficulty, as well as the R ovary and fallopian tube as they were edematous and necrotic from the mass, and the specimen was sent to pathology. These results will be followed up on. On the day of discharge she had passed gas and was tolerating a solid diet. Her pain was well controlled on oral medications. The recommendation was made to her to start OCPs to help prevent any future cysts on her remaining ovary. She was given a prescription and will wait until her f/u appt this Monday at the [facility] before she starts them. All of her questions answered and she was discharged in stable condition. Discharge Exam - Head Exam Head Exam: ATRAUMATIC, NORMAL INSPECTION, NORMOCEPHALIC - Eye Exam Eye Exam: Normal appearance - ENT Exam ENT Exam: Mucous Membranes Moist - Respiratory Exam Respiratory Exam: NORMAL BREATHING PATTERN - Cardiovascular Exam Cardiovascular Exam: REGULAR RHYTHM - GI/Abdominal Exam GI & Abdominal Exam: Soft. absent: Distended, Firm, Guarding, Tenderness Additional comments: Laparotomy incision doing well, no erythema or drainage, darwin in place - Psychiatric Exam Psychiatric exam: Normal Affect, Normal Mood Discharge Plan - Follow Up Plan Condition: GOOD Disposition: HOME/ ROUTINE Instructions: Ovarian Cysts, Ethinyl Estradiol and Drospirenone, Ibuprofen, Oxycodone and Acetaminophen Additional Instructions: follow up appointment is mondayoctober [address] shelli woodson at [facility] at [address] [place] [address] in [place] please fill prescription for KINGA ..do not start this medicine until you see dr woodson , bring this medicine with you to your appointment Referrals: Shelli Woodson MD [Resident] -
[2018-10-06 17:20] VITALS: O2SAT 98
== END 2018-10-05 17:30 | disposition home or self-care (01) | DRG 519 ==
LOC: H.ER 08:48 → H.ERHOLD 15:23 → H.PEDS 16:40
PROVIDERS: ADMIT Obstetrics & Gynecology; ATTEND Obstetrics & Gynecology
PROC: 0UT00ZZ Resection of Right Ovary, Open Approach (ICD-10-PCS; 2018-10-04)
PROC: 0HB7XZZ Excision of Abdomen Skin, External Approach (ICD-10-PCS; 2018-10-04)
PROC: 0UT50ZZ Resection of Right Fallopian Tube, Open Approach (ICD-10-PCS; principal; 2018-10-04 07:45)
DX: D25.9 Leiomyoma of uterus, unspecified (principal); N70.11 Chronic salpingitis; N83.291 Other ovarian cyst, right side; R19.09 Other intra-abdominal and pelvic swelling, mass and lump; L90.5 Scar conditions and fibrosis of skin